=== PATIENT | male | born 1955 | race Caucasian/White ===

== ENCOUNTER 2023-09-02 14:19 | Day surgery (SDC) | payer MEDICARE, BC ==
[~2023-09-02] VITALS: Ht 190.5 cm; Wt 124.7 kg
[~2023-09-02 14:19] MED LIST: COZAAR 25MG25 MG/TAB PO; Famotidine 20 MG TAB PO SCH; LR 1,000 ML IV SCH; Meclizine 25 MG TAB PO SCH; Metoclopramide 10 MG TAB PO SCH; TYLENOL 325MG325 MG PO
[2023-09-02] MEDS ORDERED: HYZAAR 12.5 MG-1 TAB PO (14:52)
[2023-09-02] MEDS ORDERED: FLOMAX 0.40.4 MG/CAP PO (14:53)
[2023-09-02 15:26] VITALS: BP 138/91; PULSE 79; TEMP 98.5
[2023-09-02] MEDS ORDERED: fentaNYL 50 MCG/ML 2 ML VIAL ONE (16:47)
[2023-09-02] MEDS ORDERED: fentaNYL 50 MCG/ML 1 ML SYRINGE/VIAL [PACU/SDC ONLY] IV PRN (17:15)
[2023-09-02] MEDS ORDERED: droPERidol 2.5 MG/ML 2 ML VIAL IV PRN (17:15)
[2023-09-02] MEDS ORDERED: HYDROmorphone 1 MG/1 ML SYRINGE [PACU/SDC ONLY] IV PRN (17:15)
[2023-09-02] MEDS ORDERED: Morphine 2 MG/1 ML VIAL [PACU/SDC ONLY] IV PRN (17:15)
[2023-09-02] MEDS ORDERED: Meperidine 50 MG/ML 1 ML VIAL IV PRN (17:15)
[2023-09-02] MEDS ORDERED: Ondansetron 4 MG/2 ML VIAL IV PRN ×2 (17:15→18:00)
[2023-09-02] MEDS ORDERED: Lidocaine 2% (20 MG/ML) 20 ML UROJET UR ONE (17:24)
[2023-09-02] MEDS ORDERED: Acetaminophen 325 MG TAB PO PRN (18:00)
[2023-09-02] MEDS ORDERED: Naloxone 0.4 MG/ML VIAL IV PRN (18:00)
[2023-09-02] MEDS ORDERED: Hyoscyamine 0.125 MG Sublingual TAB SL PRN (18:00)
[2023-09-02] MEDS ORDERED: hydrALAZINE 20 MG/ML 1 ML VIAL IV SCH (18:15)
[2023-09-02 18:20] VITALS: BP 141/101; PULSE 76; TEMP 97.3
[2023-09-02 18:35] VITALS: BP 142/86; PULSE 72
[2023-09-02 18:45] VITALS: BP 133/89; PULSE 68
--- NOTE | 2023-09-02 18:55 | NUR ---
1819 RETURNS TO ROOM 1 PER CART WITH HOB ELEVATED 50 DEGREES. AWAKE, ALERT. RESP UNLABORED. VITAL SIGNS OBTAINED. ABD SOFT. DENIES DISCOMFORT, EXPRESSES PRESENCE OF URINARY URGENCY. CALL LIGHT AT SIDE. IN ROOM 1824 AMBULATES TO BATHROOM WITH STANDBY ASSIST. ADMITS TO URIN ATING WITHOUT DIFFICULTY, PINK URINE 1829 TOLERATES PO JUICE WITHOUT NAUSEA 1839 DISCHARGE INSTRUCTIONS REVIEWED. PATIENT AND VERBALIZE UNDERSTANDING. COPY PROVIDED IN [employer] FOLDER 1846 SITS ON EDGE OF CART. DRESSES SELF, THEN AMBULATES TO BATHROOM WITH STANDBY ASSIST. VOIDS. DENIES PAIN, REPORTS DECREASED URINARY URGENCY
[2023-09-02] MEDS ORDERED: Acetaminophen 500 MG TAB PO SCH (18:57)
== END 2023-09-02 18:58 | disposition home or self-care (01) ==
LOC: SDCO 14:19
DX: N21.0 Calculus in bladder (principal); G47.33 Obstructive sleep apnea (adult) (pediatric); R31.21 Asymptomatic microscopic hematuria; R97.20 Elevated prostate specific antigen [PSA]; Z79.899 Other long term (current) drug therapy; Z80.42 Family history of malignant neoplasm of prostate
CPT/HCPCS: J0360; J2704; J3010; J7120